=== PATIENT | male | born 1990 | race Caucasian/White ===

== ENCOUNTER 2020-03-29 11:47 | Emergency (ER) | payer MEDICAID ==
[~2020-03-29] VITALS: Ht 172.7 cm; Wt 65.0 kg
[2020-03-29] MEDS ORDERED: TETANUS, DIPHTHERIA, PERTUSSIS VAC/PF 0.5ML (>7YR OLD) IM ONE (12:30)
[2020-03-29] MEDS ORDERED: ACETAMINOPHEN 650MG SUPP PR ONE (12:45)
[2020-03-29] MEDS ORDERED: ACETAMINOPHEN 325MG TABLET PO ONE (13:30)
[2020-03-29] MEDS ORDERED: CEPH250C2 MT (13:44)
[2020-03-29] MEDS ORDERED: IBUP-2029 MT (13:44)
[2020-03-29 14:12] VITALS: BP 139/69
== END 2020-03-29 14:19 | disposition home or self-care (01) ==
LOC: ER 11:47
DX: S92.534A Nondisplaced fracture of distal phalanx of right lesser toe(s), initial encounter for closed fracture (principal); S91.201A Unspecified open wound of right great toe with damage to nail, initial encounter; Z88.0 Allergy status to penicillin; Z88.8 Allergy status to other drugs, medicaments and biological substances; W01.0XXA Fall on same level from slipping, tripping and stumbling without subsequent striking against object, initial encounter; Y93.89 Activity, other specified; Y92.89 Other specified places as the place of occurrence of the external cause
CPT/HCPCS: 73660; 90471; 90715; 99283